=== PATIENT | male | born 1980 | race Caucasian/White ===

== ENCOUNTER 2016-12-03 15:25 | Outpatient (CLI) ==
[2016-12-03 15:53] LABS: BASOPHILS % (AUTO) 0.6 % (0.0-3.0); EOSINOPHILS # (AUTO) 0.1 K/ul (0.0-0.7); EOSINOPHILS % (AUTO) 2.6 % (0.0-7.0); HEMATOCRIT 46.2 % (42.0-52.0); HEMOGLOBIN 15.9 g/dl (14.0-18.0); IMMATURE GRANULOCYTE % (AUTO) 0.4 % (0.0-5.0); LYMPHOCYTES # (AUTO) 1.5 K/uL (0.60-3.4); LYMPHOCYTES % (AUTO) 27.4 (10.0-50.0); MEAN CORPUSCULAR HEMOGLOBIN 31.6 pg (27.0-31.0); MEAN CORPUSCULAR HGB CONC 34.4 (31.8-35.4); MEAN CORPUSCULAR VOLUME 91.8 fl (80.0-94.0); MONOCYTES # (AUTO) 0.3 K/uL (0.4-2.0); MONOCYTES % (AUTO) 5.8 (0-10); NEUTROPHILS # (AUTO) 3.4 K/ul (2.0-6.9); NEUTROPHILS % (AUTO) 63.2; PLATELET COUNT 215 10^3/uL (140-440); RED BLOOD COUNT 5.03 10^6/ul (4.70-6.10); WHITE BLOOD COUNT 5.33 K/ul (4.2-10.2)
[2016-12-03 15:55] LABS: BILIRUBIN,URINE Negative (NEGATIVE); KETONES,URINE Negative (NEGATIVE); LEUKOCYTE ESTERASE ,URINE 1+ (NEGATIVE); NITRITE,URINE Negative (NEGATIVE); PH,URINE >=9.0 (5-9); PROTEIN,URINE Negative (NEGATIVE); URINE, BLOOD 2+ (NEGATIVE)
[2016-12-03 15:56] LABS: ADD URINE MICROSCOPIC YES
[2016-12-03 16:00] LABS: BACTERIA,URINE 2+ (NOT PRESENT)
--- NOTE | 2016-12-03 16:29 | DI ---
EXAM: Chest two view. HISTORY: Cough. COMPARISON: None. FINDINGS: Heart size is normal. The lungs are clear without localized pulmonary infiltrate or pneu monia. There is no pleural fluid. Skeletal structures are unremarkable. IMPRESSION: 1. Negative chest. 2. No active cardiopulmonary disease is seen.
[2016-12-03 16:35] LABS: ALBUMIN 3.8 g/dL (3.4-5.0); ALBUMIN/GLOBULIN RATIO 1.15; BILIRUBIN,TOTAL 0.61 mg/dL (0.00-1.20); BUN/CREATININE RATIO 11.68; CALCIUM 8.9 mg/dL (8.2-10.2); CHOL/HDL RATIO 3.8 (4.5-6.4); CREATININE 0.77 mg/dL (0.60-1.10); TOTAL PROTEIN 7.1 g/dL (6.4-8.2)
--- NOTE | 2016-12-03 16:37 | DI ---
Exam: Thoracic spine three-view. HISTORY: Pain in thoracic spine. Comparison: Chest x-ray two-view this same date. Findings: Anterior, lateral and swimmer's views of the thoracic spine are submitted. These demonstr ate mild levoscoliosis with multilevel mild degenerative disease. There is a subtle compression def ormity of the superior T12 endplate. No listhesis is visualized. There is no osseous erosion or rad iodense foreign body. The cervicothoracic junction is partially obscured by shoulder artifact. Impressions: Mild levoscoliosis with multilevel mild degenerative disease. Subtle compression defo rmity involving the T12 vertebral body superior endplate which is of unknown chronicity.
[2016-12-06 15:51] LABS: FREE TESTOSTERONE 6.4 pg/mL (8.7-25.1)
== END 2016-12-03 15:26 | disposition home or self-care (01) ==
LOC: RAD 15:25
PROVIDERS: ATTEND Nurse Practitioner Family
DX: M54.6 Pain in thoracic spine (principal); R05 Cough; E75.6 Lipid storage disorder, unspecified; R03.0 Elevated blood-pressure reading, without diagnosis of hypertension; Z87.898 Personal history of other specified conditions
CPT/HCPCS: 36415; 80053; 80061; 81001; 84402; 84439; 84443; 85025; 87086; 87186

== ENCOUNTER 2017-12-11 11:41 | Outpatient (CLI) ==
--- NOTE | 2017-12-11 12:57 | DI ---
EXAM: Chest two view, frontal and lateral views. HISTORY: Essential hypertension. COMPARISON: 12/03/2016. FINDINGS: The heart size is normal. There is no pulmonary vascular congestion. The lungs are clear . No pleural effusion or pneumothorax is seen. No acute osseous abnormality identified. Since the prior study, there has been no significant interval change. IMPRESSION: No acute cardiopulmonary process.
== END 2017-12-11 11:42 | disposition home or self-care (01) ==
LOC: LAB 11:41
PROVIDERS: ATTEND Nurse Practitioner Family
DX: R07.89 Other chest pain (principal); I10 Essential (primary) hypertension; F32.9 Major depressive disorder, single episode, unspecified; Z87.898 Personal history of other specified conditions
CPT/HCPCS: 36415; 80053; 80061; 80306; 81001; 84439; 84443; 85025; 93005; 93010

== ENCOUNTER 2017-12-16 10:22 | Outpatient (CLI) ==
--- NOTE | 2017-12-16 13:59 | US ---
EXAM: Thyroid ultrasound HISTORY: Hypothyroidism, unspecified COMPARISON: None TECHNIQUE: Thyroid ultrasound was performed FINDINGS: Right thyroid measures 1.3 x 1.7 x 4.4 cm. Left thyroid measures 1.0 x 1.3 x 2.9 cm. Thy roid isthmus measures 0.3 cm. Thyroid normal in echogenicity and vascularity. No focal thyroid nodu les identified. IMPRESSION: Small left thyroid lobe. Otherwise unremarkable thyroid ultrasound.
== END 2017-12-16 10:23 | disposition home or self-care (01) ==
LOC: RAD 10:22
PROVIDERS: ATTEND Nurse Practitioner Family
DX: E03.9 Hypothyroidism, unspecified (principal)

== ENCOUNTER 2017-12-18 11:24 | Outpatient (CLI) ==
--- NOTE | 2017-12-18 14:08 | DI ---
EXAM: Radiographs, right shoulder HISTORY: Right shoulder pain. COMPARISON: None available. TECHNIQUE: Three views. FINDINGS: Bone mineralization is normal. There is no fracture or dislocation. The joint spaces are maintained although there is mild spurring and cystic change of the acromioclavicular joint. No foc al soft tissue abnormality is seen. IMPRESSION: Mild acromioclavicular osteoarthritis.
--- NOTE | 2017-12-18 14:08 | DI ---
EXAM: Left shoulder three view HISTORY: Pain in left shoulder COMPARISON: None FINDINGS: The bones are normal. The glenohumeral joint and acromioclavicular joint are normal. No fo urban soft tissue abnormality. Visualized portion of the chest is normal. IMPERSSION: Normal examination.
--- NOTE | 2017-12-18 14:09 | DI ---
Exam: Three views of the left wrist. Comparison: None available. Reason for exam: Tenosynovitis FINDINGS: No acute fracture or malalignment. The joint spaces are well maintained. No unexplained calcific soft tissue density or radiopaque retained foreign body. Impression: No acute fracture or malalignment in the left wrist
== END 2017-12-18 11:25 | disposition home or self-care (01) ==
LOC: LAB 11:24
PROVIDERS: ATTEND Nurse Practitioner Family
DX: R79.89 Other specified abnormal findings of blood chemistry (principal); M25.50 Pain in unspecified joint; M25.512 Pain in left shoulder; M25.511 Pain in right shoulder; M65.4 Radial styloid tenosynovitis [de Quervain]; M25.532 Pain in left wrist
CPT/HCPCS: 36415; 84402; 85651; 86038; 86140; 86430